=== PATIENT | male | born 1965 | race Caucasian/White ===

== ENCOUNTER 2016-05-29 09:17 | Emergency (ER) | payer MEDICARE ==
[2016-05-29 09:28] VITALS: TEMP 98.1; BMI 29.9
[2016-05-29] MEDS ORDERED: NS 1,000 ML IV ONE (09:40)
[2016-05-29] MEDS ORDERED: HYDROmorphone 1 MG INJECTION IV ONE (09:40)
[2016-05-29] MEDS ORDERED: ONDANSETRON HCL 4 MG/2 ML VIAL IV ONE (09:40)
[2016-05-29] MEDS ORDERED: Albuterol/Ipratropium Neb 3 ML NEB NEB ONE (09:46)
[2016-05-29 09:57] LABS: LEUKOCYTES/URINE 2+ (NEGATIVE); NITRITE/URINE NEG (NEGATIVE); URINE OCCULT BLOOD NEG (NEG/TRACE); WBC/URINE 40-50 (0-2)
[2016-05-29] MEDS ORDERED: TRIMETHOPRIM-SULFAMETHOXAZOLE TAB PO ONE (10:09)
--- NOTE | 2016-05-29 10:23 | EDPRACDOC ---
- General Information Chief Complaint: Male Urogenital Problems Stated Complaint: KIDNEY PAIN Time Seen by Provider: 05/29/16 09:36 Information Source: Patient Mode Of Arrival: Car Home Medications: Home Medications Albuterol Sulfate [Proair Hfa] 2 puff INH Q4-6H PRN 03/17/16 Fluticasone/Salmeterol [Advair 250-50] 1 puff INH BID 03/17/16 Oxycodone Immediate Release [Oxycodone Immediate Release (OxyIR)] 5 mg PO Q6H PRN #20 tab 05/29/16 Sulfamethoxazole/Trimethoprim [Bactrim Ds Tablet] 1 tab PO BID #14 tab 05/29/16 Allergies/Adverse Reactions: Allergies Allergy/AdvReac Type Severity Reaction Status Date / Time No Known Allergies Allergy Verified 05/29/16 09:28 - History of Present Illness HPI: PT PRESENTS WITH RIGHT FLANK PAIN. STATES HE WAS ADMITTED LAST WEEK WITH A LARGE KIDNEY STONE. PT IS TO HAVE OUTPATIENT LITHOTRIPSY. PT WELL KNOWN TO THIS FACILITY FOR ABUSE OF OPIATES. STATES HE IS NOT TAKING HIS SUBOXONE. Onset: 2 WEEKS Urinary Pain Location: Reports: Right Flank Symptom Onset: Reports: Gradual Pain Severity: Moderate Pain Quality: Reports: Sharp, Stabbing History of: Reports: Kidney Stone Oral Intake: Normal Urinary Output: Normal Associated Signs and Symptoms: Reports: None ED Past Medical History - History Reviewed Yes Nurses notes reviewed and agree except as marked - Patient Medical History Respiratory History: Reports: Asthma GI/ History: Reports: Kidney Stones Psychological History: Reports: Depression, Anxiety, Substance Use Disorder Additional Past Medical History: Chronic pain Surgical History: Reports: Other - Family Medical History Reports: Hypertension, Diabetes (brother, father), Cancer (aunt, sister, mother) , Cardiac Disorders (father) - Social Medical History Smoking Status: Heavy tobacco smoker (5 or more cigarettes/day or daily pipe/ cigar) Social History: Reports: Substance Use Disorder EDM Review of Systems - Review of Systems ROS Negative Except as Marked: Yes All systems reviewed and were negative except as marked - Physical Exam Constitutional: Alert Oriented to: Time, Person, Place Last recorded Vital Signs: Last Vital Signs Temp 98.1 F 05/29/16 09:25 Pulse 80 05/29/16 09:25 Resp 18 05/29/16 09:25 BP 146/86 05/29/16 09:25 Pulse Ox 99 05/29/16 09:25 Oxygen Pulse Oxygen Saturation 99 O2 Device Room Air Oxygen Flow Rate Fraction of Inspired Oxygen ( FIO2) - HEENT Head: Normal ( normocephalic) Eye Exam: Normal (PERRL, EOMI, Sclera white) Oropharynx: Normal (Pharynx:Moist without exudate,Gums-no swelling) Tympanic Membrane: Normal Nose: No Symptoms Reported (septum midline) Neck: Normal (FROM, trachea at midline) - Respiratory/Cardiovascular Respiratory: Normal - CTA (BBS clear to auscultation without adventitious sounds ) Cardiovascular: Normal (RRR without murmur, gallop or rub) - GI Auscultation: Normal (NABS) Palpation: Normal (Soft,No rebound or guarding, non distended) Tenderness: Non tender Abraham's Sign: Negative Rectal Exam: Deferred - Musculoskeletal Back: Normal (Non-Tender) Extremities: Normal (Normal tone, Pulses 2+ No cyanosis or edema, FROM) - Integumentary Skin: Normal, Warm, Dry Lymphatics: Normal (no adenopathy) - Neurologic Memory Impaired: Normal Motor Function: Normal (Normal tone, Pulses 2+ No cyanosis or edema, FROM) Cranial Nerve: Normal (CN II-X11 intact sensation, strength 5/5) Cerebellar: Normal Mood Description: Normal Perception: Normal - Differential Diagnosis Other, Urolithiasis - Results 05/29/16 10:12 05/29/16 10:12 Urine Color Yellow 05/29/16 09:40 Urine Clarity Clear 05/29/16 09:40 Urine pH 6.0 (5.0-8.0) 05/29/16 09:40 Ur Specific [place] 1.015 (1.003-1.035) 05/29/16 09:40 Urine Protein Neg (NEG/TRACE) 05/29/16 09:40 Urine Glucose (UA) Neg (NEGATIVE) 05/29/16 09:40 Urine Ketones Neg (NEGATIVE) 05/29/16 09:40 Urine Occult Blood Neg (NEG/TRACE) 05/29/16 09:40 Urine Nitrite Neg (NEGATIVE) 05/29/16 09:40 Urine Bilirubin Neg (NEGATIVE) 05/29/16 09:40 Urine Urobilinogen <2.0 MG/DL (0-1) 05/29/16 09:40 Ur Leukocyte Esterase 2+ (NEGATIVE) H 05/29/16 09:40 Urine RBC 2-5 (0-2) H 05/29/16 09:40 Urine WBC 40-50 (0-2) H 05/29/16 09:40 Urine Bacteria 1+ (NEG/FEW) H 05/29/16 09:40 Hyaline Casts 2-5 (0-2) H 05/29/16 09:40 Urine Mucus Occ (NEG/OCC) 05/29/16 09:40 Lab Results 05/29/16 09:40 Urine Color Yellow Urine Clarity Clear Urine pH 6.0 Ur Specific [place] 1.015 Urine Protein Neg Urine Glucose (UA) Neg Urine Ketones Neg Urine Occult Blood Neg Urine Nitrite Neg Urine Bilirubin Neg Urine Urobilinogen <2.0 Ur Leukocyte Esterase 2+ H Urine RBC 2-5 H Urine WBC 40-50 H Urine Bacteria 1+ H Hyaline Casts 2-5 H Urine Mucus Occ Decision Time to Discharge: 10:56 - Departure Disposition: Home Condition: Stable Final Diagnosis: Urinary tract infectious disease Instructions: Urinary Tract Infection in Men (ED) Education/Counseling Given To: Patient Education/Counseling Given Regarding: Diagnosis, Treatment, Prognosis, Follow Up Referrals: Cricket Alexander II, MD [Staff Physician] - One Week Prescriptions: Oxycodone Immediate Release [Oxycodone Immediate Release (OxyIR)] 5 mg PO Q6H PRN #20 tab PRN Reason: Pain Sulfamethoxazole/Trimethoprim [Bactrim Ds Tablet] 1 tab PO BID #14 tab Additional Instructions: INCREASE FLUID INTAKE. FOLLOW UP WITH PRIMARY CARE PROVIDER NEXT WEEK. TAKE ALL ANTIBIOTICS PRESCRIBED. RETURN TO THE ED FOR WORSENING SYMPTOMS OR CONCERNS.
[2016-05-29 10:29] LABS: ALL NEG? NO
[2016-05-29 10:31] LABS: AUTOMATED BASOPHIL 0.9 % (0-2); AUTOMATED EOSINOPHIL 0.6 % (0-5); AUTOMATED LYMPH 23.4 % (17-44); AUTOMATED MONOCYTE 5.5 % (3-10); AUTOMATED NEUTROPHIL 69.6 % (45-76); MPV 7.5 fL (7.4-10.4)
[2016-05-29 10:36] LABS: MDMA* NEG (NEGATIVE); METHAMPHETAMINES NEG (NEGATIVE)
[2016-05-29 10:37] LABS: OXYCODONE NEG (NEGATIVE)
[2016-05-29 10:41] LABS: BLOOD UREA NITROGEN 15 MG/DL (9-20); CALCIUM 9.2 MG/DL (8.4-10.2); CALCULATED OSMOLALITY 274 MOs/Kg (270-290); CHLORIDE 106 mEq/L (98-107); GLUCOSE 90 MG/DL (70-99); SODIUM LEVEL 142 mEq/L (137-146); TOTAL PROTEIN 7.6 G/DL (6.3-8.2)
[2016-05-29 10:57] VITALS: BP 129/82; PULSE 70
== END 2016-05-29 11:10 | disposition home or self-care (01) ==
LOC: ED 09:17
DX: N39.0 Urinary tract infection, site not specified (principal); J45.909 Unspecified asthma, uncomplicated
CPT/HCPCS: 36415; 80053; 80307; 81001; 85025; 87077; 87086; 87186; 94640; 96361; 96374; 96375; 99284; A9270; J1170; J2405; J7620; J3490